=== PATIENT | female | born 1965 | race American Indian/Alaskan Native ===

== ENCOUNTER 2016-07-25 02:47 | Emergency (ER) | payer OTHER ==
[~2016-07-25] VITALS: Ht 177.8 cm; Wt 111.9 kg
[~2016-07-25 02:47] MED LIST: FURO-93 PO; HYDR25TA6 PO; INSU100I18 SQ-INSULIN; INSU100I28 SQ-INSULIN; LISI2.5T PO; LISI40TA PO; NEBI10TA3 PO; OMEP20CA9 PO; ONDA4TAB7 PO; OXYC5TAB3 PO; [UNRECOGNIZED DRUG - OTHER]
[2016-07-25 02:48] VITALS: BP 168/105
== END 2016-07-25 04:15 | disposition home or self-care (01) ==
LOC: ED 04:09
DX: H66.002 Acute suppurative otitis media without spontaneous rupture of ear drum, left ear (principal); R05 Cough; J02.9 Acute pharyngitis, unspecified; I10 Essential (primary) hypertension; E11.9 Type 2 diabetes mellitus without complications
CPT/HCPCS: 99283

== ENCOUNTER 2017-01-30 16:25 | Emergency (ER) | payer OTHER ==
[~2017-01-30] VITALS: Ht 170.2 cm; Wt 109.5 kg
[2017-01-30 17:25] VITALS: BP 167/103
[2017-01-30 17:42] LABS: HEMATOCRIT 38.7 % (34.6-47.8); HEMOGLOBIN 12.9 g/dL (11.7-16.4); WHITE BLOOD COUNT 9.3 x10^3/uL (3.4-10)
[2017-01-30 17:53] LABS: BLOOD UREA NITROGEN 27 mg/dL (7-18)
[2017-01-30 18:08] LABS: RAPID INFLUENZA A Negative (Negative); RAPID INFLUENZA B Negative (Negative)
== END 2017-01-30 19:04 | disposition home or self-care (01) ==
LOC: ED 18:35
DX: B34.9 Viral infection, unspecified (principal); E11.9 Type 2 diabetes mellitus without complications; I10 Essential (primary) hypertension
CPT/HCPCS: 36415; 71020; 80048; 82040; 85025; 87400; 99285

== ENCOUNTER 2018-10-18 12:23 | Emergency (ER) | payer OTHER ==
[~2018-10-18] VITALS: Ht 170.2 cm; Wt 93.3 kg
[2018-10-18 12:28] VITALS: BP 126/87
== END 2018-10-18 13:52 | disposition home or self-care (01) ==
LOC: ED 13:16
DX: J02.8 Acute pharyngitis due to other specified organisms (principal); B97.89 Other viral agents as the cause of diseases classified elsewhere; R51 Headache; R11.2 Nausea with vomiting, unspecified; I10 Essential (primary) hypertension; E11.9 Type 2 diabetes mellitus without complications
CPT/HCPCS: 87081; 87880; 99283

== ENCOUNTER 2019-06-22 23:28 | Inpatient (IN) | payer OTHER ==
[~2019-06-22] VITALS: Ht 165.1 cm; Wt 103.1 kg
[~2019-06-22 23:28] MED LIST changes: +AMLO10TA8 PO; +CARV-39 PO; +LISI-167 PO; +RANI150C PO; +ROSU10TA2 PO; +SODI650T PO; +VITAMIN D3 PO
--- NOTE | 2019-06-22 23:53 | NUR ---
Pt presents to room reporting nausea for 4 days and vomiting for 3 days. Pt states she has been able to keep down a popsicle this evening but prior has not been able to keep PO down. Pt also reports diarrhea with the N/V. Pt reports abdominal pain only with vomiting. Pt reports decreased urine output. Pt goes on to report being placed on abx yesterday for an infection found in her left breast.
[2019-06-23] MEDS ORDERED: SODIUM CHLORIDE FLUSH 10ML SYR IVF ONE
[2019-06-23] MEDS ORDERED: PROMETHAZINE 25 MG/ML, 1ML IM ONE
[2019-06-23] MEDS ORDERED: ONDANSETRON 2MG/ML, 2ML IVPush ONE
[2019-06-23] MEDS ORDERED: PROMETHAZINE 25 MG/ML, 1ML ONE (00:18)
[2019-06-23] MEDS ORDERED: ONDANSETRON 2MG/ML, 2ML ONE ×2 (00:18→00:26)
[2019-06-23 00:20] LABS: ALANINE AMINOTRANSFERASE 16 U/L (12-78); ALBUMIN 2.7 g/dL (3.4-5.0); ANION GAP 16 mmol/L (5-15); CALCIUM 7.8 mg/dL (8.5-10.1); CHLORIDE 108 mmol/L (98-107)
[2019-06-23 00:29] LABS: MEAN CORPUSCULAR HEMOGLOBIN 29.8 pg (27.0-34.8); MEAN CORPUSCULAR HGB CONC 33.5 g/dL (32.4-35.8); MEAN CORPUSCULAR VOLUME 89.1 fL (80-100); MEAN PLATELET VOLUME 8.3 fL (7.4-10.4); PLATELET COUNT 99 x10^3/uL (130-400); RED BLOOD COUNT 3.46 x10^6/uL (3.82-5.3); RED CELL DISTRIBUTION WIDTH 13.2 % (9.6-15.2)
[2019-06-23 00:32] LABS: BASOPHILS # (AUTO) 0.02 x10^3/uL (0-0.1); BASOPHILS % (AUTO) 0 % (0-1); EOSINOPHILS # (AUTO) 0.24 x10^3/uL (0-0.4); EOSINOPHILS % (AUTO) 4 % (1-7); LYMPHOCYTES # (AUTO) 0.88 x10^3/uL (1-3.4); LYMPHOCYTES % (AUTO) 16 % (22-44); MD SCAN; MONOCYTES % (AUTO) 5 % (2-9); NEUTROPHILS # (AUTO) 4.24 x10^3/uL (1.8-6.8); NEUTROPHILS % (AUTO) 75 % (42-75)
[2019-06-23] MEDS ORDERED: SODIUM CHLORIDE 0.9% 1,000 ML IV ONE (00:40)
[2019-06-23 00:41] LABS: ALKALINE PHOSPHATASE 116 U/L (45-117); BILIRUBIN,TOTAL 0.4 mg/dL (0.2-1.0); TOTAL PROTEIN 7.3 g/dL (6.4-8.2); TROPONIN I < 0.015 ng/mL (0.000-0.045)
[2019-06-23] MEDS ORDERED: CALCIUM CHLORIDE 10%, 10ML SYR ONE ×2 (00:52→01:18)
[2019-06-23] MEDS ORDERED: DEXTROSE 50%, 50ML SYRINGE ONE (00:52)
[2019-06-23] MEDS ORDERED: FUROSEMIDE 40 MG/4 ML ONE (00:52)
[2019-06-23] MEDS ORDERED: INSULIN SINGLE DOSE, ER ONE (00:53)
[2019-06-23] MEDS ORDERED: SODIUM CHLORIDE 0.9% 1,000ML IVBOLUS ONE ×2 (01:00)
[2019-06-23] MEDS ORDERED: FUROSEMIDE 40 MG/4 ML IVPush ONE (01:00)
[2019-06-23] MEDS ORDERED: ALBUTEROL 0.5%, 20ML NPPB ONE (01:00)
[2019-06-23] MEDS ORDERED: CALCIUM CHLORIDE 10%, 10ML SYR IVPush ONE (01:00)
[2019-06-23] MEDS ORDERED: INSULIN REGULAR 100 UNITS/ML, 3ML VIAL IVPush ONE ×3 (01:00→12:30)
[2019-06-23] MEDS ORDERED: SODIUM BICARB 8.4%, 50ML SYRINGE IVPush ONE (01:00)
[2019-06-23] MEDS ORDERED: DEXTROSE 50%, 50ML SYRINGE IVPush ONE ×4 (01:00→12:30)
[2019-06-23] MEDS ORDERED: SODIUM BICARBONATE 1 MEQ/ML, 50ML VIAL ONE (01:09)
[2019-06-23] MEDS ORDERED: MORPHINE SULFATE 4 MG/ML, 1ML ONE (01:23)
[2019-06-23] MEDS ORDERED: MORPHINE SULFATE 4 MG/ML, 1ML IVPush ONE (01:30)
--- NOTE | 2019-06-23 01:32 | NUR ---
Pt has increasing back pain since admission. Pt given Morphine for the pain.
[2019-06-23] MEDS ORDERED: GABAPENTIN 100 MG CAPSULE PO PRN (02:00)
[2019-06-23] MEDS ORDERED: hydrALAzine 20 MG/ML, 1ML IVPush PRN (02:00)
[2019-06-23] MEDS ORDERED: TRAZODONE 50MG TABLET PO PRN (02:00)
[2019-06-23] MEDS ORDERED: PROMETHAZINE 25 MG/ML, 1ML IM PRN (02:00)
[2019-06-23] MEDS ORDERED: CEFTRIAXONE PMX 2GM/50ML 50 ML IV SCH (02:00)
[2019-06-23] MEDS: SODIUM BICARBONATE 650 MG TABLET PO SCH ×3 (02:00→21:37)
[2019-06-23] MEDS ORDERED: morphine SULFATE 10 MG/ML, 1ML IVPush PRN (02:00)
--- NOTE | 2019-06-23 02:13 | NUR ---
REPORT RECEIVED FROM SHI MCKAY. PT RESTING ON [facility] WITH FAMILY AT FOR SUPPORT. ALL MONITORING IN PLACE. CALL LIGHT WITHIN REACH. PT REPORTS CONTINUED LOW BACK PAIN. PT BLOOD SUGAR 61, PROVIDED APPLEJUICE TO PT ALONG WITH ICE CHIPS. PT TO IMAGING AT THIS TIME. PT UPDATED ON POC.
[2019-06-23 02:52] VITALS: BP 129/72
[2019-06-23 04:43] LABS: ANION GAP 14 mmol/L (5-15); CALCIUM 7.8 mg/dL (8.5-10.1); CHLORIDE 112 mmol/L (98-107)
[2019-06-23 05:03] LABS: MEAN CORPUSCULAR HGB CONC 33.5 g/dL (32.4-35.8); MEAN CORPUSCULAR VOLUME 89.5 fL (80-100); MEAN PLATELET VOLUME 8.5 fL (7.4-10.4); PLATELET COUNT 89 x10^3/uL (130-400); RED CELL DISTRIBUTION WIDTH 13.1 % (9.6-15.2)
[2019-06-23] MEDS ORDERED: DEXTROSE 4 GM TAB.CHEW PO PRN ×2 (05:30→08:30)
[2019-06-23] MEDS ORDERED: DEXTROSE 50%, 50ML SYRINGE IVPush PRN ×2 (05:30→08:30)
[2019-06-23] MEDS ORDERED: GLUCAGON 1 MG IM PRN ×2 (05:30→08:30)
[2019-06-23 05:34] LABS: BASOPHILS # (AUTO) 0.04 x10^3/uL (0-0.1); BASOPHILS % (AUTO) 1 % (0-1); EOSINOPHILS % (AUTO) 3 % (1-7); LYMPHOCYTES # (AUTO) 1.66 x10^3/uL (1-3.4); LYMPHOCYTES % (AUTO) 25 % (22-44); MD SCAN; MONOCYTES # (AUTO) 0.56 x10^3/uL (0.2-0.8); MONOCYTES % (AUTO) 8 % (2-9); NEUTROPHILS # (AUTO) 4.24 x10^3/uL (1.8-6.8); NEUTROPHILS % (AUTO) 63 % (42-75)
[2019-06-23 06:33] VITALS: BP 164/91
[2019-06-23 07:52] VITALS: BP 154/91
[2019-06-23] MEDS: CARVEDILOL 6.25 MG TABLET PO SCH ×2 (07:53→21:37)
[2019-06-23] MEDS: INSULIN LISPRO 100 UNITS/ML, PEN SQ-INSULIN SCH ×4 (07:53→21:00)
[2019-06-23] MEDS ORDERED: SODIUM POLYSTYRENE SULFONATE ORAL SUSP PO ONE (09:00)
[2019-06-23] MEDS ORDERED: AMLODIPINE 10 MG TAB PO SCH (09:00)
[2019-06-23] MEDS: SODIUM CHLORIDE FLUSH 10ML SYR IVF SCH ×2 (09:00→21:38)
[2019-06-23] MEDS ORDERED: SODIUM CHLORIDE FLUSH 10ML SYR IVF SCH (09:00)
[2019-06-23] MEDS ORDERED: SODIUM BICARBONATE 8.4% 150 MEQ in DEXTROSE 5% 1,000 ML IV SCH (09:30)
[2019-06-23 10:17] LABS: MICROSCOPIC INDICATED
[2019-06-23 10:18] LABS: CHLORIDE,URINE RANDOM 41 mmol/L; CULTURE INDICATED? YES; POTASSIUM,URINE RANDOM 41 mmol/L; SODIUM,URINE RANDOM 39 mmol/L
[2019-06-23 11:29] LABS: PROTEIN/CREATININE RATIO,URINE > 14205 (0-200); TOTAL PROTEIN,URINE RANDOM > 2500 mg/dL (0-12)
[2019-06-23 11:40] LABS: CALCIUM 7.6 mg/dL (8.5-10.1)
[2019-06-23 11:45] LABS: ANION GAP 17 mmol/L (5-15); CHLORIDE 109 mmol/L (98-107)
[2019-06-23] MEDS: AMPICILLIN/SULBACTAM 1,500 MG in SODIUM CHLORIDE 0.9% 50 ML IV SCH ×2 (12:35→17:53)
[2019-06-23] MEDS: LIDODERM 5% PATCH TD SCH (12:36)
[2019-06-23 13:10] VITALS: BP 147/88
[2019-06-23] MEDS: ACETAMINOPHEN 325 MG TABLET PO PRN (13:30)
[2019-06-23 15:04] LABS: ANION GAP 17 mmol/L (5-15); CALCIUM 7.5 mg/dL (8.5-10.1); CHLORIDE 108 mmol/L (98-107)
[2019-06-23] MEDS: SODIUM BICARBONATE 8.4% 150 MEQ in DEXTROSE 5% 1,000 ML IV SCH (17:52)
[2019-06-23 18:45] VITALS: BP 148/83
[2019-06-23 21:35] LABS: ANION GAP 15 mmol/L (5-15); CALCIUM 6.9 mg/dL (8.5-10.1); CHLORIDE 105 mmol/L (98-107)
[2019-06-24] MEDS: AMPICILLIN/SULBACTAM 1,500 MG in SODIUM CHLORIDE 0.9% 50 ML IV SCH ×2 (00:02→06:24)
[2019-06-24] MEDS: SODIUM BICARBONATE 8.4% 150 MEQ in DEXTROSE 5% 1,000 ML IV SCH (00:02)
[2019-06-24 00:43] VITALS: BP 145/79
[2019-06-24] MEDS: ONDANSETRON 2MG/ML, 2ML IVPush PRN ×3 (01:56→16:43)
[2019-06-24 05:24] LABS: MEAN CORPUSCULAR HEMOGLOBIN 30.2 pg (27.0-34.8); MEAN CORPUSCULAR HGB CONC 33.6 g/dL (32.4-35.8); MEAN CORPUSCULAR VOLUME 89.9 fL (80-100); RED BLOOD COUNT 2.87 x10^6/uL (3.82-5.3); RED CELL DISTRIBUTION WIDTH 13.4 % (9.6-15.2)
[2019-06-24 05:28] LABS: ALBUMIN 2.3 g/dL (3.4-5.0); ANION GAP 16 mmol/L (5-15); CALCIUM 6.9 mg/dL (8.5-10.1); CHLORIDE 105 mmol/L (98-107)
[2019-06-24 05:40] LABS: BASOPHILS # (AUTO) 0.02 x10^3/uL (0-0.1); BASOPHILS % (AUTO) 0 % (0-1); EOSINOPHILS # (AUTO) 0.31 x10^3/uL (0-0.4); EOSINOPHILS % (AUTO) 6 % (1-7); LYMPHOCYTES % (AUTO) 24 % (22-44); MD SCAN; MEAN PLATELET VOLUME 8.6 fL (7.4-10.4); MONOCYTES # (AUTO) 0.38 x10^3/uL (0.2-0.8); MONOCYTES % (AUTO) 8 % (2-9); NEUTROPHILS # (AUTO) 3.19 x10^3/uL (1.8-6.8); NEUTROPHILS % (AUTO) 63 % (42-75); PLATELET COUNT 73 x10^3/uL (130-400)
[2019-06-24 06:22] VITALS: BP 156/93
[2019-06-24 06:23] VITALS: BP 160/89
[2019-06-24] MEDS: INSULIN LISPRO 100 UNITS/ML, PEN SQ-INSULIN SCH ×4 (07:00→20:10)
[2019-06-24] MEDS: CALCIUM ACETATE 667 MG CAPSULE PO SCH ×3 (08:00→16:43)
[2019-06-24 08:10] LABS: RED BLOOD COUNT 3.02 x10^6/uL (3.82-5.3)
[2019-06-24 08:19] LABS: ABSOLUTE RETICS # 0.017 x10^6/uL (0.5-2.5); RETICULOCYTE COUNT % 0.57 % (0.5-1.5)
[2019-06-24] MEDS: CARVEDILOL 6.25 MG TABLET PO SCH ×2 (09:00→20:20)
[2019-06-24] MEDS: SODIUM CHLORIDE FLUSH 10ML SYR IVF SCH ×2 (09:00→20:20)
[2019-06-24] MEDS ORDERED: PANTOPRAZOLE 40 MG IV IVPush SCH (09:00)
[2019-06-24] MEDS: CHOLECALCIFEROL 1,000 UNIT TABLET PO SCH (09:00)
[2019-06-24] MEDS ORDERED: SODIUM BICARBONATE 8.4% 150 MEQ in DEXTROSE 5% 1,000 ML IV SCH (09:30)
[2019-06-24 13:52] VITALS: BP 163/80
[2019-06-24 15:30] LABS: OCCULT BLOOD NEGATIVE (NEGATIVE)
[2019-06-24] MEDS: ACETAMINOPHEN 325 MG TABLET PO PRN (16:44)
[2019-06-24] MEDS: PANTOPRAZOLE 40MG TABLET PO SCH (16:44)
[2019-06-24] MEDS: LIDODERM 5% PATCH TD SCH (16:44)
[2019-06-24 19:12] VITALS: BP 171/89
[2019-06-24] MEDS: AMLODIPINE 10 MG TAB PO SCH (20:20)
[2019-06-24] MEDS: ATORVASTATIN 40 MG TABLET PO SCH (20:20)
[2019-06-24 22:52] VITALS: BP 157/87
[2019-06-25 02:27] LABS: ALBUMIN 2.1 g/dL (3.4-5.0); ANION GAP 10 mmol/L (5-15); CALCIUM 7.2 mg/dL (8.5-10.1); CHLORIDE 100 mmol/L (98-107)
[2019-06-25 03:00] LABS: MEAN CORPUSCULAR HEMOGLOBIN 29.5 pg (27.0-34.8); MEAN CORPUSCULAR HGB CONC 33.3 g/dL (32.4-35.8); MEAN CORPUSCULAR VOLUME 88.8 fL (80-100); RED BLOOD COUNT 2.61 x10^6/uL (3.82-5.3); RED CELL DISTRIBUTION WIDTH 13.1 % (9.6-15.2)
[2019-06-25 03:01] LABS: BASOPHILS # (AUTO) 0.02 x10^3/uL (0-0.1); BASOPHILS % (AUTO) 1 % (0-1); EOSINOPHILS # (AUTO) 0.19 x10^3/uL (0-0.4); EOSINOPHILS % (AUTO) 5 % (1-7); LYMPHOCYTES # (AUTO) 0.67 x10^3/uL (1-3.4); LYMPHOCYTES % (AUTO) 16 % (22-44); MD SCAN; MEAN PLATELET VOLUME 8.3 fL (7.4-10.4); MONOCYTES # (AUTO) 0.38 x10^3/uL (0.2-0.8); MONOCYTES % (AUTO) 9 % (2-9); NEUTROPHILS # (AUTO) 2.86 x10^3/uL (1.8-6.8); NEUTROPHILS % (AUTO) 69 % (42-75)
[2019-06-25 03:02] LABS: PLATELET COUNT 45 x10^3/uL (130-400)
[2019-06-25 03:42] VITALS: BP 152/85
[2019-06-25] MEDS: ONDANSETRON 2MG/ML, 2ML IVPush PRN (04:40)
[2019-06-25] MEDS: PANTOPRAZOLE 40MG TABLET PO SCH ×2 (05:27→13:53)
[2019-06-25] MEDS ORDERED: AMPICILLIN/SULBACTAM 1,500 MG in SODIUM CHLORIDE 0.9% 50 ML IV SCH (06:00)
[2019-06-25 06:03] VITALS: BP 157/82
[2019-06-25] MEDS: INSULIN LISPRO 100 UNITS/ML, PEN SQ-INSULIN SCH ×4 (07:00→20:56)
[2019-06-25] MEDS: CALCIUM ACETATE 667 MG CAPSULE PO SCH ×3 (08:00→16:19)
[2019-06-25] MEDS: SODIUM CHLORIDE FLUSH 10ML SYR IVF SCH ×2 (09:00→20:56)
[2019-06-25] MEDS: CARVEDILOL 6.25 MG TABLET PO SCH ×2 (13:51→20:55)
[2019-06-25] MEDS: AMOXICILLIN/CLAV 875-125MG TABLET PO SCH ×2 (13:51→20:55)
[2019-06-25] MEDS: CHOLECALCIFEROL 1,000 UNIT TABLET PO SCH (13:51)
[2019-06-25 14:18] VITALS: BP 176/97
[2019-06-25 15:04] VITALS: BP 157/89
[2019-06-25] MEDS: LIDODERM 5% PATCH TD SCH (16:19)
[2019-06-25 18:38] VITALS: BP 155/86
[2019-06-25] MEDS: ATORVASTATIN 40 MG TABLET PO SCH (20:55)
[2019-06-25] MEDS: AMLODIPINE 10 MG TAB PO SCH (20:55)
[2019-06-25] MEDS: ACETAMINOPHEN 325 MG TABLET PO PRN (23:48)
[2019-06-26 02:15] VITALS: BP 136/72
[2019-06-26 03:02] LABS: ALANINE AMINOTRANSFERASE 19 U/L (12-78); ALBUMIN 2.1 g/dL (3.4-5.0); ANION GAP 6 mmol/L (5-15); CALCIUM 7.5 mg/dL (8.5-10.1); CHLORIDE 102 mmol/L (98-107)
[2019-06-26 03:05] LABS: ALKALINE PHOSPHATASE 77 U/L (45-117); BILIRUBIN,TOTAL 0.4 mg/dL (0.2-1.0); CREATININE 8.06 mg/dL (0.55-1.02); TOTAL PROTEIN 5.6 g/dL (6.4-8.2)
[2019-06-26 06:53] VITALS: BP 148/86
[2019-06-26] MEDS: INSULIN LISPRO 100 UNITS/ML, PEN SQ-INSULIN SCH ×4 (07:00→21:00)
[2019-06-26] MEDS: CALCIUM ACETATE 667 MG CAPSULE PO SCH ×3 (08:00→16:10)
[2019-06-26] MEDS: AMOXICILLIN/CLAV 875-125MG TABLET PO SCH ×2 (08:51→20:59)
[2019-06-26] MEDS: CARVEDILOL 6.25 MG TABLET PO SCH ×2 (08:52→20:59)
[2019-06-26] MEDS: SODIUM CHLORIDE FLUSH 10ML SYR IVF SCH ×2 (09:00→20:58)
[2019-06-26 09:34] LABS: INTERNATIONAL NORMALIZED RATIO 1.04 (0.93-1.1)
[2019-06-26 13:16] VITALS: BP 162/102
[2019-06-26] MEDS: LIDODERM 5% PATCH TD SCH (14:25)
[2019-06-26 14:28] LABS: ANA SCREEN NEGATIVE (Negative)
[2019-06-26] MEDS: CHOLECALCIFEROL 1,000 UNIT TABLET PO SCH (16:10)
[2019-06-26] MEDS: PANTOPRAZOLE 40MG TABLET PO SCH (16:10)
[2019-06-26] MEDS: ONDANSETRON 2MG/ML, 2ML IVPush PRN (16:24)
[2019-06-26 18:34] VITALS: BP 155/81
[2019-06-26 19:54] LABS: BASOPHILS # (AUTO) 0.01 x10^3/uL (0-0.1); BASOPHILS % (AUTO) 0 % (0-1); EOSINOPHILS # (AUTO) 0.19 x10^3/uL (0-0.4); EOSINOPHILS % (AUTO) 5 % (1-7); LYMPHOCYTES % (AUTO) 15 % (22-44); MD SCAN; MEAN CORPUSCULAR HEMOGLOBIN 29.6 pg (27.0-34.8); MEAN CORPUSCULAR HGB CONC 33.5 g/dL (32.4-35.8); MEAN CORPUSCULAR VOLUME 88.3 fL (80-100); MEAN PLATELET VOLUME 8.7 fL (7.4-10.4); MONOCYTES # (AUTO) 0.46 x10^3/uL (0.2-0.8); MONOCYTES % (AUTO) 11 % (2-9); NEUTROPHILS % (AUTO) 70 % (42-75); RED BLOOD COUNT 2.48 x10^6/uL (3.82-5.3); RED CELL DISTRIBUTION WIDTH 12.8 % (9.6-15.2)
[2019-06-26 19:57] LABS: PLATELET COUNT 42 x10^3/uL (130-400)
[2019-06-26 20:44] LABS: OCCULT BLOOD NEGATIVE (NEGATIVE)
[2019-06-26] MEDS: ATORVASTATIN 40 MG TABLET PO SCH (20:59)
[2019-06-26] MEDS: AMLODIPINE 10 MG TAB PO SCH (20:59)
[2019-06-26] MEDS: ACETAMINOPHEN 325 MG TABLET PO PRN (20:59)
[2019-06-27 01:15] VITALS: BP 130/76
[2019-06-27 06:16] LABS: ALBUMIN 2.2 g/dL (3.4-5.0); CALCIUM 7.5 mg/dL (8.5-10.1); CHLORIDE 100 mmol/L (98-107)
[2019-06-27 06:19] LABS: MEAN CORPUSCULAR HEMOGLOBIN 30.6 pg (27.0-34.8); MEAN CORPUSCULAR HGB CONC 34.3 g/dL (32.4-35.8); MEAN CORPUSCULAR VOLUME 89.2 fL (80-100); MEAN PLATELET VOLUME 8.6 fL (7.4-10.4); RED BLOOD COUNT 2.32 x10^6/uL (3.82-5.3); RED CELL DISTRIBUTION WIDTH 13.3 % (9.6-15.2)
[2019-06-27 06:20] LABS: ALANINE AMINOTRANSFERASE 41 U/L (12-78); ALKALINE PHOSPHATASE 95 U/L (45-117); ANION GAP 4 mmol/L (5-15); BILIRUBIN,TOTAL 0.4 mg/dL (0.2-1.0); CREATININE 4.96 mg/dL (0.55-1.02); TOTAL PROTEIN 5.7 g/dL (6.4-8.2)
[2019-06-27 06:21] LABS: PLATELET COUNT 43 x10^3/uL (130-400)
[2019-06-27 06:42] VITALS: BP 150/84
[2019-06-27] MEDS: INSULIN LISPRO 100 UNITS/ML, PEN SQ-INSULIN SCH ×4 (07:00→20:26)
[2019-06-27] MEDS: CARVEDILOL 6.25 MG TABLET PO SCH ×2 (08:35→20:23)
[2019-06-27] MEDS: CHOLECALCIFEROL 1,000 UNIT TABLET PO SCH (08:35)
[2019-06-27] MEDS: PANTOPRAZOLE 40MG TABLET PO SCH (08:35)
[2019-06-27] MEDS: SODIUM CHLORIDE FLUSH 10ML SYR IVF SCH ×2 (08:35→20:23)
[2019-06-27] MEDS: AMOXICILLIN/CLAV 875-125MG TABLET PO SCH ×2 (08:35→20:23)
[2019-06-27] MEDS: CALCIUM ACETATE 667 MG CAPSULE PO SCH ×3 (08:35→16:16)
[2019-06-27] MEDS: ACETAMINOPHEN 325 MG TABLET PO PRN (08:37)
[2019-06-27 08:43] LABS: MD SCAN
[2019-06-27 08:45] LABS: BASOPHILS # (AUTO) 0.03 x10^3/uL (0-0.1); BASOPHILS % (AUTO) 1 % (0-1); EOSINOPHILS # (AUTO) 0.16 x10^3/uL (0-0.4); EOSINOPHILS % (AUTO) 5 % (1-7); LYMPHOCYTES % (AUTO) 27 % (22-44); MONOCYTES # (AUTO) 0.45 x10^3/uL (0.2-0.8); MONOCYTES % (AUTO) 13 % (2-9); NEUTROPHILS # (AUTO) 1.87 x10^3/uL (1.8-6.8); NEUTROPHILS % (AUTO) 55 % (42-75)
[2019-06-27 12:13] VITALS: BP 157/85
[2019-06-27] MEDS: LIDODERM 5% PATCH TD SCH (15:21)
[2019-06-27 15:45] LABS: HIT RESULT NEGATIVE (NEGATIVE)
[2019-06-27 18:33] VITALS: BP 160/82
[2019-06-27] MEDS: ATORVASTATIN 40 MG TABLET PO SCH (20:23)
[2019-06-27] MEDS: AMLODIPINE 10 MG TAB PO SCH (20:23)
[2019-06-28 01:42] VITALS: BP 154/88
[2019-06-28 05:48] LABS: MEAN CORPUSCULAR HEMOGLOBIN 29.6 pg (27.0-34.8); MEAN CORPUSCULAR HGB CONC 33.2 g/dL (32.4-35.8); RED BLOOD COUNT 2.42 x10^6/uL (3.82-5.3); RED CELL DISTRIBUTION WIDTH 13.2 % (9.6-15.2)
[2019-06-28 05:59] LABS: ALBUMIN 2.4 g/dL (3.4-5.0); ANION GAP 5 mmol/L (5-15); CALCIUM 7.8 mg/dL (8.5-10.1); CHLORIDE 101 mmol/L (98-107)
[2019-06-28 06:03] LABS: ALANINE AMINOTRANSFERASE 40 U/L (12-78); ALKALINE PHOSPHATASE 119 U/L (45-117); BILIRUBIN,TOTAL 0.5 mg/dL (0.2-1.0); CREATININE 6.87 mg/dL (0.55-1.02); TOTAL PROTEIN 6.1 g/dL (6.4-8.2)
[2019-06-28 06:48] LABS: BASOPHILS # (AUTO) 0.03 x10^3/uL (0-0.1); BASOPHILS % (AUTO) 1 % (0-1); EOSINOPHILS % (AUTO) 5 % (1-7); LYMPHOCYTES # (AUTO) 1.01 x10^3/uL (1-3.4); LYMPHOCYTES % (AUTO) 23 % (22-44); MD SCAN; MEAN PLATELET VOLUME 8.9 fL (7.4-10.4); MONOCYTES # (AUTO) 0.58 x10^3/uL (0.2-0.8); MONOCYTES % (AUTO) 13 % (2-9); NEUTROPHILS # (AUTO) 2.53 x10^3/uL (1.8-6.8); NEUTROPHILS % (AUTO) 58 % (42-75); PLATELET COUNT 60 x10^3/uL (130-400)
[2019-06-28] MEDS: INSULIN LISPRO 100 UNITS/ML, PEN SQ-INSULIN SCH ×2 (07:00→11:00)
[2019-06-28] MEDS: CALCIUM ACETATE 667 MG CAPSULE PO SCH ×2 (08:00→12:52)
[2019-06-28] MEDS: SODIUM CHLORIDE FLUSH 10ML SYR IVF SCH (09:00)
[2019-06-28 09:46] VITALS: BP 160/92
[2019-06-28] MEDS: AMOXICILLIN/CLAV 875-125MG TABLET PO SCH (09:48)
[2019-06-28] MEDS: CARVEDILOL 6.25 MG TABLET PO SCH (09:48)
[2019-06-28] MEDS: PANTOPRAZOLE 40MG TABLET PO SCH (09:48)
[2019-06-28] MEDS: CHOLECALCIFEROL 1,000 UNIT TABLET PO SCH (09:48)
[2019-06-28] MEDS: ACETAMINOPHEN 325 MG TABLET PO PRN (09:52)
[2019-06-28] MEDS ORDERED: LIDOCAINE 1%, 20ML ONE (10:38)
[2019-06-28] MEDS ORDERED: LIDOCAINE 1%, 10ML ONE (10:38)
[2019-06-28] MEDS ORDERED: MIDAZOLAM 1 MG/ML, 5ML ONE (10:47)
[2019-06-28] MEDS ORDERED: FLUMAZENIL 0.1 MG/1 ML, 5ML ONE (10:47)
[2019-06-28] MEDS ORDERED: FENTANYL PF 100 MCG/2ML ONE (10:47)
[2019-06-28] MEDS ORDERED: NALOXONE 1 MG/ML, 2ML ONE (10:47)
[2019-06-28 12:49] VITALS: BP 163/89
[2019-06-28 13:49] VITALS: BP 160/72
[2019-06-28] MEDS ORDERED: CALC667C PO (13:50)
[2019-06-28] MEDS ORDERED: ACET325T26 PO (13:50)
[2019-06-28] MEDS ORDERED: PANT40TA5 PO (13:50)
[2019-06-28] MEDS ORDERED: CHOL10003 PO (13:50)
[2019-06-28] MEDS ORDERED: AMOX1TAB12 PO (13:50)
[2019-06-28] MEDS ORDERED: AMOXICILLIN/CLAV 500-125MG TABLET PO SCH (15:00)
[2019-06-28] MEDS ORDERED: AMOXICILLIN/CLAV 500-125MG TABLET PO PRN ×2 (15:00)
[2019-06-28] MEDS: LIDODERM 5% PATCH TD SCH (15:00)
[2019-06-29] MEDS ORDERED: AMOXICILLIN/CLAV 875-125MG TABLET PO SCH (09:00)
[2019-06-29] MEDS ORDERED: AMOXICILLIN/CLAV 500-125MG TABLET PO SCH (09:00)
== END 2019-06-28 18:04 | disposition home or self-care (01) | DRG 673 ==
LOC: ED 23:58 → EDIP 06-23 01:31 → 4WST 06-23 02:45
PROVIDERS: ADMIT Family Medicine; ATTEND Hospitalist
PROC: 02HV33Z Insertion of Infusion Device into Superior Vena Cava, Percutaneous Approach (ICD-10-PCS; principal; 2019-06-24)
PROC: B548ZZA Ultrasonography of Superior Vena Cava, Guidance (ICD-10-PCS; 2019-06-24)
PROC: B5181ZA Fluoroscopy of Superior Vena Cava using Low Osmolar Contrast, Guidance (ICD-10-PCS; 2019-06-24)
PROC: 5A1D70Z Performance of Urinary Filtration, Intermittent, Less than 6 Hours Per Day (ICD-10-PCS; 2019-06-24)
PROC: 5A1D70Z Performance of Urinary Filtration, Intermittent, Less than 6 Hours Per Day (ICD-10-PCS; 2019-06-25)
PROC: 5A1D70Z Performance of Urinary Filtration, Intermittent, Less than 6 Hours Per Day (ICD-10-PCS; 2019-06-26)
PROC: 0JH63XZ Insertion of Tunneled Vascular Access Device into Chest Subcutaneous Tissue and Fascia, Percutaneous Approach (ICD-10-PCS; 2019-06-28)
PROC: 02PYX3Z Removal of Infusion Device from Great Vessel, External Approach (ICD-10-PCS; 2019-06-28)
PROC: B548ZZA Ultrasonography of Superior Vena Cava, Guidance (ICD-10-PCS; 2019-06-28)
PROC: 02HV33Z Insertion of Infusion Device into Superior Vena Cava, Percutaneous Approach (ICD-10-PCS; 2019-06-28)
PROC: B5181ZA Fluoroscopy of Superior Vena Cava using Low Osmolar Contrast, Guidance (ICD-10-PCS; 2019-06-28)
DX: I12.0 Hypertensive chronic kidney disease with stage 5 chronic kidney disease or end stage renal disease (principal); N17.0 Acute kidney failure with tubular necrosis; N18.6 End stage renal disease; E87.2 Acidosis; N25.81 Secondary hyperparathyroidism of renal origin; D64.9 Anemia, unspecified; D69.6 Thrombocytopenia, unspecified; E11.22 Type 2 diabetes mellitus with diabetic chronic kidney disease; E66.01 Morbid (severe) obesity due to excess calories; Z68.37 Body mass index [BMI] 37.0-37.9, adult; E78.5 Hyperlipidemia, unspecified; E83.39 Other disorders of phosphorus metabolism; E86.0 Dehydration; E87.5 Hyperkalemia; G47.00 Insomnia, unspecified; G89.29 Other chronic pain; K21.9 Gastro-esophageal reflux disease without esophagitis; K52.9 Noninfective gastroenteritis and colitis, unspecified; N61.0 Mastitis without abscess; R04.0 Epistaxis; Z79.4 Long term (current) use of insulin; Z83.3 Family history of diabetes mellitus; Z99.2 Dependence on renal dialysis; Z90.49 Acquired absence of other specified parts of digestive tract; M54.5 Low back pain
CPT/HCPCS: 36415; 72110; 77001; 84155; 84156; 96361; 96372; 96374; 96375; 99291; J3490; 36556; 36558; 76642; 76770; 76937; 80048; 80053; 80069; 80074; 81001; 82272; 82306; 82330; 82436; 82542; 82550; 82570; 82607; 82728; 82962; 83010; 83036; 83540; 83550; 83615; 83690; 83735; 83883; 83970; 84100; 84133; 84165; 84166; 84300; 84484; 85014; 85018; 85025; 85045; 85610; 85730; 86022; 86038; 86160; 86162; 86225; 86480; 87040; 87070; 87077; 87081; 87086; 87147; 87186; 87205; 90935; 93005; 99156; 99157; C1894; G0378; J0696; J1815; J1940; J2250; J2405; J2550; J3010; J7070; C1750; C1751; C9113; G0365; J0295; J0360; J1642; J2270; J2310; J7030

== ENCOUNTER 2019-06-30 07:54 | Emergency (ER) | payer OTHER ==
[~2019-06-30] VITALS: Ht 170.2 cm; Wt 103.4 kg
[2019-06-30] VITALS (12 sets, daily range): BP systolic 155–178; BP diastolic 93–104
[~2019-06-30 07:54] MED LIST changes: +ACET325T26 PO; +AMOX1TAB12 PO; +CALC667C PO; +CHOL10003 PO; +PANT40TA5 PO
[2019-06-30] MEDS ORDERED: MICROFIBRILLAR COLLAGEN 1 GM TP ONE (08:25)
--- NOTE | 2019-06-30 08:28 | NUR ---
first contact with pt. dialysis port placed yesterday. has been leaking all night. pt denies pain. no swelling/redness around the port. pt's aox4. resps even and unlabored. bp/spo2 monitors in place. call light within reach. edmd at bedside to evaluate at this time.
--- NOTE | 2019-06-30 08:52 | NUR ---
edmd at bedside to remove dressing at this time. pt tolerated well.
--- NOTE | 2019-06-30 09:44 | NUR ---
pt resting in [facility]. pt's aox4. resps even and unlabored. bp/spo2 monitors in place. call light within reach.
[2019-06-30 09:47] LABS: MEAN CORPUSCULAR HEMOGLOBIN 29.8 pg (27.0-34.8); MEAN CORPUSCULAR HGB CONC 33.5 g/dL (32.4-35.8); MEAN PLATELET VOLUME 8.8 fL (7.4-10.4); PLATELET COUNT 62 x10^3/uL (130-400); RED BLOOD COUNT 2.18 x10^6/uL (3.82-5.3); RED CELL DISTRIBUTION WIDTH 13.3 % (9.6-15.2)
--- NOTE | 2019-06-30 09:57 | NUR ---
edmd and pt signed on consent form for blood transfusion. consent form in chart.
--- NOTE | 2019-06-30 10:35 | NUR ---
task RN note: PIV placed at request from primary RN. bp and spo2 monitors in place .call light in reach. pt a&o, resps even and unlabored. pt denies any needs at this time.
[2019-06-30 10:38] LABS: MD SCAN
[2019-06-30 10:40] LABS: BASOPHILS # (AUTO) 0.03 x10^3/uL (0-0.1); BASOPHILS % (AUTO) 1 % (0-1); EOSINOPHILS # (AUTO) 0.12 x10^3/uL (0-0.4); EOSINOPHILS % (AUTO) 3 % (1-7); LYMPHOCYTES # (AUTO) 0.74 x10^3/uL (1-3.4); LYMPHOCYTES % (AUTO) 19 % (22-44); MONOCYTES # (AUTO) 0.44 x10^3/uL (0.2-0.8); MONOCYTES % (AUTO) 11 % (2-9); NEUTROPHILS # (AUTO) 2.55 x10^3/uL (1.8-6.8); NEUTROPHILS % (AUTO) 66 % (42-75)
--- NOTE | 2019-06-30 11:24 | NUR ---
BLOOD TRANSFUSION STRATED AT THIS TIME. VERIFIED WITH CACHORRO OSULLIVAN.
--- NOTE | 2019-06-30 12:08 | NUR ---
pt still transfusing PRBCs. pt's aox4. resps even and unlabored. pt denies pain/sob/any other sx. piv site cdi with no redness and edema.
--- NOTE | 2019-06-30 13:02 | NUR ---
pt still transfusing PRBCs. pt's aox4. resps even and unlabored. pt denies pain/sob/any other sx. piv site cdi with no redness and edema.
--- NOTE | 2019-06-30 13:09 | NUR ---
pt c/o woozing from port again. edmd notified.
--- NOTE | 2019-06-30 13:40 | NUR ---
late entry: pt refused to stay at hospital at this time. pt states"i really wanna go home." edmd notified.
--- NOTE | 2019-06-30 13:54 | NUR ---
2ND BLOOD TRANSFUSION STARTED AT THIS TIME.
--- NOTE | 2019-06-30 14:48 | NUR ---
pt still transfusing PRBCs. pt's aox4. resps even and unlabored. pt denies pain/sob/any other sx. piv site cdi with no redness and edema.
--- NOTE | 2019-06-30 15:08 | NUR ---
PT AMB TO BR AND BACK TO ROOM WITH STEADY GAIT.
[2019-06-30] MEDS ORDERED: ACETAMINOPHEN 500 MG TABLET ONE (16:22)
--- NOTE | 2019-06-30 16:24 | NUR ---
PLTS TRANSFUSION STARTED AT THIS TIME. VERIFIED WITH MIKALA OSULLIVAN.
[2019-06-30] MEDS ORDERED: ACETAMINOPHEN 325 MG TABLET PO ONE (16:30)
--- NOTE | 2019-06-30 16:38 | NUR ---
JUICE/SNACKS GIVEN AT THIS TIME PER REQUEST.
--- NOTE | 2019-06-30 17:17 | NUR ---
PT RESTING IN [facility]. PT'S AOX4. RESPS EVEN AND UNLABORED. BP/SPO2 MONITORS IN PLACE. CALL LIGHT WITHIN REACH. DENIES ANY SX AT THIS TIME.
--- NOTE | 2019-06-30 17:40 | NUR ---
PT STATES"I WANNA GO HOME SOON POSSIBLE" EDMD NOTIFIED AND AGREED WITH THIS PLAN. VSS. NO REACTIONS. DENIES ANY SX.
--- NOTE | 2019-06-30 17:50 | NUR ---
Patient given discharge instructions and they have confirmed that they understand the instructions. Patient ambulatory with steady gait.
== END 2019-06-30 17:51 | disposition home or self-care (01) ==
LOC: ED 08:22
DX: N17.9 Acute kidney failure, unspecified (principal); D62 Acute posthemorrhagic anemia; I12.9 Hypertensive chronic kidney disease with stage 1 through stage 4 chronic kidney disease, or unspecified chronic kidney disease; E11.22 Type 2 diabetes mellitus with diabetic chronic kidney disease; N18.3 Chronic kidney disease, stage 3 (moderate)
CPT/HCPCS: 36415; 36430; 76000; 85025; 86850; 86900; 86923; 99285; P9016; P9035

== ENCOUNTER 2019-09-10 14:50 | Day surgery (SDC) | payer OTHER ==
[~2019-09-10] VITALS: Ht 170.2 cm; Wt 97.0 kg
[2019-09-10] MEDS ORDERED: CHLORHEXIDINE 15 ML UDC ONE ×2 (15:11→15:51)
[2019-09-10] MEDS ORDERED: CHLORHEXIDINE 15 ML UDC MM ONE (15:30)
[2019-09-10 15:31] VITALS: BP 164/97
[2019-09-10] MEDS ORDERED: LACTATED RINGERS 1,000 ML IV SCH (16:00)
[2019-09-10] MEDS ORDERED: FENTANYL PF 100 MCG/2ML ONE (16:25)
[2019-09-10] MEDS ORDERED: MIDAZOLAM 1 MG/ML, 2ML ONE (16:25)
[2019-09-10] MEDS ORDERED: PROMETHAZINE 25 MG/ML, 1ML IVPush PRN (16:30)
[2019-09-10] MEDS ORDERED: MIDAZOLAM 1 MG/ML, 2ML IV PRN (16:30)
[2019-09-10] MEDS ORDERED: hydrALAzine 20 MG/ML, 1ML IV PRN (16:30)
[2019-09-10] MEDS ORDERED: ACETAMINOPHEN 325 MG TABLET PO PRN (16:30)
[2019-09-10] MEDS ORDERED: LABETALOL 5MG/ML, 20ML IV PRN (16:30)
[2019-09-10] MEDS ORDERED: FENTANYL PF 100 MCG/2ML IV PRN (16:30)
[2019-09-10] MEDS ORDERED: ALBUTEROL SULFATE 2.5 MG/3 ML NPPB PRN (16:30)
[2019-09-10] MEDS ORDERED: OXYcodone 5 MG/5 ML ORAL.SOL UDC PO PRN (16:30)
[2019-09-10] MEDS ORDERED: BACITRACIN 50,000 UNIT ONE (16:36)
[2019-09-10] MEDS ORDERED: HEPARIN 1,000 UNITS/ML, 10ML ONE (16:36)
[2019-09-10] MEDS ORDERED: BUPIVACAINE/PF 0.5% ONE (16:36)
[2019-09-10] MEDS ORDERED: LIDOCAINE PF 2%, 5ML ONE (17:01)
[2019-09-10] MEDS ORDERED: EPHEDRINE 50 MG/ML, 1ML ONE (17:27)
[2019-09-10] MEDS ORDERED: CEFAZOLIN 1,000 MG ONE (17:43)
[2019-09-10] MEDS ORDERED: DEXAMETHASONE 4 MG/ML, 1ML ONE (17:43)
[2019-09-10] MEDS ORDERED: ONDANSETRON 2MG/ML, 2ML ONE (17:43)
[2019-09-10] MEDS ORDERED: PROPOFOL 10 MG/ML, 20ML ONE (17:43)
[2019-09-10] MEDS ORDERED: OXYcodone 5 MG/5 ML ORAL.SOL UDC ONE (18:07)
[2019-09-10] MEDS ORDERED: HYDR-3240 PO (20:09)
[2019-09-10] MEDS ORDERED: ONDANSETRON 2MG/ML, 2ML IVPush PRN (20:30)
[2019-09-10] MEDS ORDERED: HYDROcodone/APAP 5/325 TABLET PO PRN (20:30)
[2019-09-10] MEDS ORDERED: MORPHINE SULFATE 4 MG/ML, 1ML IVPush PRN (20:30)
== END 2019-09-10 20:45 | disposition home or self-care (01) ==
LOC: OR 14:50 → 4NE 18:45 → OR 20:45
PROVIDERS: ATTEND Surgery
DX: E11.22 Type 2 diabetes mellitus with diabetic chronic kidney disease (principal); Z11.59 Encounter for screening for other viral diseases; I12.0 Hypertensive chronic kidney disease with stage 5 chronic kidney disease or end stage renal disease; N18.6 End stage renal disease; K21.9 Gastro-esophageal reflux disease without esophagitis; E78.5 Hyperlipidemia, unspecified; D64.9 Anemia, unspecified; E66.9 Obesity, unspecified; Z79.899 Other long term (current) drug therapy; Z88.6 Allergy status to analgesic agent; Z82.49 Family history of ischemic heart disease and other diseases of the circulatory system; Z83.3 Family history of diabetes mellitus; Z80.6 Family history of leukemia
CPT/HCPCS: 36818; 87635; J0690; J1100; J1644; J2250; J2405; J2704; J3010; G0378

== ENCOUNTER 2019-12-17 13:20 | Emergency (ER) | payer OTHER ==
[~2019-12-17] VITALS: Ht 170.2 cm; Wt 102.0 kg
[~2019-12-17 13:20] MED LIST changes: +HYDR-3240 PO; -PANT40TA5 PO; +PANT40TA6 PO
--- NOTE | 2019-12-17 15:57 | NUR ---
first contact with pt. pt stated"my dialysis port is clotting and my dr told me to come here." pt denies any physical sx. pt's aox4. resps even and ulabored. no redness/pain/swelling noted around port on r chest. bp/spo2 monitors in place. call light within reach.
--- NOTE | 2019-12-17 16:29 | NUR ---
pt moved to room 4 at this time.
[2019-12-17 16:59] VITALS: BP 96/64
[2019-12-18] MEDS ORDERED: VITAMIN D3 PO (12:19)
[2019-12-18] MEDS ORDERED: PANT40TA6 PO (12:19)
[2019-12-18] MEDS ORDERED: LOSA50TA14 PO (12:19)
[2019-12-18] MEDS ORDERED: [UNRECOGNIZED DRUG - OTHER] PO (12:21)
== END 2019-12-17 17:02 | disposition home or self-care (01) ==
LOC: ED 16:51
DX: I12.0 Hypertensive chronic kidney disease with stage 5 chronic kidney disease or end stage renal disease (principal); E11.22 Type 2 diabetes mellitus with diabetic chronic kidney disease; N18.6 End stage renal disease; Z90.49 Acquired absence of other specified parts of digestive tract; Z99.2 Dependence on renal dialysis
CPT/HCPCS: 99281

== ENCOUNTER 2019-12-18 11:23 | Day surgery (SDC) | payer OTHER ==
[~2019-12-18] VITALS: Ht 170.2 cm; Wt 102.3 kg
[2019-12-18] MEDS ORDERED: SODIUM CHLORIDE 0.9% 1,000 ML IV SCH (12:11)
[2019-12-18 12:12] VITALS: BP 118/77
[2019-12-18] MEDS ORDERED: VITAMIN D3 PO (12:19)
[2019-12-18] MEDS ORDERED: PANT40TA6 PO (12:19)
[2019-12-18] MEDS ORDERED: LOSA50TA14 PO (12:19)
[2019-12-18] MEDS ORDERED: [UNRECOGNIZED DRUG - OTHER] PO (12:21)
[2019-12-18] MEDS ORDERED: CEFAZOLIN PMX 1GM/50ML 50 ML IV ONE (12:30)
[2019-12-18] MEDS ORDERED: PLEASE ENTER ALLERGIES MC SCH (12:30)
[2019-12-18] MEDS ORDERED: LIDOCAINE 1%, 10ML ONE (12:53)
[2019-12-18] MEDS ORDERED: FENTANYL PF 100 MCG/2ML ONE (13:06)
[2019-12-18] MEDS ORDERED: NALOXONE 1 MG/ML, 2ML ONE (13:06)
[2019-12-18] MEDS ORDERED: MIDAZOLAM 1 MG/ML, 5ML ONE (13:06)
[2019-12-18] MEDS ORDERED: FLUMAZENIL 0.1 MG/1 ML, 5ML ONE (13:06)
== END 2019-12-18 15:15 | disposition home or self-care (01) ==
LOC: OUT 11:23
PROVIDERS: ATTEND Emergency Medicine
DX: T82.868A Thrombosis due to vascular prosthetic devices, implants and grafts, initial encounter (principal); E11.22 Type 2 diabetes mellitus with diabetic chronic kidney disease; I12.0 Hypertensive chronic kidney disease with stage 5 chronic kidney disease or end stage renal disease; N18.5 Chronic kidney disease, stage 5; Z88.6 Allergy status to analgesic agent; Y83.8 Other surgical procedures as the cause of abnormal reaction of the patient, or of later complication, without mention of misadventure at the time of the procedure
CPT/HCPCS: 36581; 99156; 99157; C1750; J0690; J1642; J2250; J3010; J7030; 75984; J2310

== ENCOUNTER → 2020-04-22 | Outpatient (CLI) | payer OTHER ==
[~2020-04-22] MED LIST changes: +AMLO-211 PO; -AMLO10TA8 PO; +CARV6.252 PO; +HYDR-1067 PO; -HYDR-3240 PO; -LISI40TA PO; +LISI40TA9 PO; +LOSA50TA14 PO; -OXYC5TAB3 PO; +OXYC5TAB98 PO; +SUCR500T PO; +[UNRECOGNIZED DRUG - OTHER] PO
[2020-04-22 11:22] LABS: BASOPHILS % (AUTO) 1 % (0-1); EOSINOPHILS % (AUTO) 4 % (1-7); LYMPHOCYTES % (AUTO) 21 % (22-44); MEAN CORPUSCULAR HEMOGLOBIN 32.3 pg (27.0-34.8); MEAN CORPUSCULAR HGB CONC 33.4 g/dL (32.4-35.8); MEAN PLATELET VOLUME 8.7 fL (7.4-10.4); MONOCYTES % (AUTO) 8 % (2-9); NEUTROPHILS % (AUTO) 67 % (42-75); PLATELET COUNT 126 x10^3/uL (130-400); RED BLOOD COUNT 2.95 x10^6/uL (3.82-5.3)
[2020-04-22 11:24] LABS: MD NO
[2020-04-22 11:34] LABS: ALANINE AMINOTRANSFERASE 34 U/L (12-78); ALBUMIN 3.9 g/dL (3.4-5.0); ANION GAP 10 mmol/L (5-15); CALCIUM 9.5 mg/dL (8.5-10.1); CHLORIDE 104 mmol/L (98-107); CREATININE 7.81 mg/dL (0.55-1.02)
[2020-04-22 11:35] LABS: INTERNATIONAL NORMALIZED RATIO 1.02 (0.93-1.1); PROTHROMBIN TIME 10.9 Seconds (9.6-11.5)
[2020-04-22 11:36] LABS: ALKALINE PHOSPHATASE 132 U/L (45-117); BILIRUBIN,TOTAL 0.5 mg/dL (0.2-1.0); TOTAL PROTEIN 7.7 g/dL (6.4-8.2)
== END | disposition home or self-care (01) ==
LOC: STAR 09:53
PROVIDERS: ATTEND Surgery
DX: Z01.812 Encounter for preprocedural laboratory examination (principal); Z20.822 Contact with and (suspected) exposure to COVID-19; N18.6 End stage renal disease; I77.0 Arteriovenous fistula, acquired
CPT/HCPCS: 80053; 85025; 85610; 85730; 87635; 93005

== ENCOUNTER 2020-04-28 12:28 | Day surgery (SDC) | payer OTHER ==
[~2020-04-28] VITALS: Ht 170.2 cm; Wt 110.0 kg
[2020-04-28 12:45] VITALS: BP 122/81
[2020-04-28] MEDS ORDERED: SODIUM CHLORIDE 0.9% 1,000 ML IV SCH (13:00)
[2020-04-28] MEDS ORDERED: CHLORHEXIDINE 15 ML UDC MM ONE (13:00)
[2020-04-28 13:22] LABS: ALANINE AMINOTRANSFERASE 29 U/L (12-78); ALBUMIN 3.7 g/dL (3.4-5.0); ANION GAP 10 mmol/L (5-15); CALCIUM 9.1 mg/dL (8.5-10.1); CHLORIDE 101 mmol/L (98-107); CREATININE 5.16 mg/dL (0.55-1.02)
[2020-04-28 13:24] LABS: ALKALINE PHOSPHATASE 104 U/L (45-117); BILIRUBIN,TOTAL 0.4 mg/dL (0.2-1.0); TOTAL PROTEIN 7.8 g/dL (6.4-8.2)
[2020-04-28] MEDS ORDERED: PROTAMINE SULFATE 10 MG/ML, 5ML ONE (14:13)
[2020-04-28] MEDS ORDERED: BUPIVACAINE/PF 0.25% ONE (14:13)
[2020-04-28] MEDS ORDERED: PAPAVERINE 30 MG/ML, 2ML ONE (14:13)
[2020-04-28] MEDS ORDERED: HEPARIN 1,000 UNITS/ML, 10ML ONE (14:14)
[2020-04-28] MEDS ORDERED: LIDOCAINE/PF 1%, 30ML ONE (14:14)
[2020-04-28] MEDS ORDERED: HYDR-1067 PO ×3 (15:04→17:12)
[2020-04-28] MEDS ORDERED: FENTANYL PF 100 MCG/2ML ONE ×4 (15:06→17:10)
[2020-04-28] MEDS ORDERED: OXYcodone 5 MG/5 ML ORAL.SOL UDC PO PRN (16:00)
[2020-04-28] MEDS ORDERED: HYDROmorphone 1 MG/ML, 1ML INJ IVPush PRN (16:00)
[2020-04-28] MEDS ORDERED: hydrALAzine 20 MG/ML, 1ML IV PRN (16:00)
[2020-04-28] MEDS ORDERED: PROMETHAZINE 25 MG/ML, 1ML IVPush PRN (16:00)
[2020-04-28] MEDS ORDERED: ACETAMINOPHEN 325 MG TABLET PO PRN (16:00)
[2020-04-28] MEDS ORDERED: PROMETHAZINE 25 MG SUPP PR PRN (16:00)
[2020-04-28] MEDS ORDERED: LABETALOL 5MG/ML, 20ML IV PRN (16:00)
[2020-04-28] MEDS ORDERED: ONDANSETRON 2MG/ML, 2ML IVPush PRN (16:00)
[2020-04-28] MEDS ORDERED: CEFAZOLIN 1,000 MG ONE (16:42)
[2020-04-28] MEDS ORDERED: ONDANSETRON 2MG/ML, 2ML ONE ×2 (16:42→19:28)
[2020-04-28] MEDS ORDERED: PROPOFOL 10 MG/ML, 20ML ONE (16:42)
[2020-04-28] MEDS ORDERED: OXYcodone 5 MG/5 ML ORAL.SOL UDC ONE (17:10)
[2020-04-28] MEDS: FENTANYL PF 100 MCG/2ML IV PRN ×2 (17:10→17:20)
[2020-04-28] MEDS ORDERED: ACETAMINOPHEN 325 MG TABLET ONE (18:12)
[2020-04-28] MEDS ORDERED: HYDROmorphone 1 MG/ML, 1ML INJ ONE (18:32)
== END 2020-04-28 19:43 | disposition home or self-care (01) ==
LOC: OUT 12:28
PROVIDERS: ATTEND Surgery
DX: T82.590A Other mechanical complication of surgically created arteriovenous fistula, initial encounter (principal); E11.22 Type 2 diabetes mellitus with diabetic chronic kidney disease; I12.0 Hypertensive chronic kidney disease with stage 5 chronic kidney disease or end stage renal disease; N18.6 End stage renal disease; Z79.899 Other long term (current) drug therapy; Z88.6 Allergy status to analgesic agent; Z83.3 Family history of diabetes mellitus; Z82.49 Family history of ischemic heart disease and other diseases of the circulatory system; Y83.8 Other surgical procedures as the cause of abnormal reaction of the patient, or of later complication, without mention of misadventure at the time of the procedure
CPT/HCPCS: 36415; 36832; 80053; 82962; J0690; J1170; J1644; J2405; J2704; J2720; J3010; J7030; J2440